=== PATIENT | male | born 1970 | race Caucasian/White ===

== ENCOUNTER → 2016-04-30 | Outpatient (CLI) | payer OTHER ==
[~2016-04-30] MED LIST: ALLOPURINOL 10100 M1 PO; ARMOUR THYROID60 M1 PO; FLEXERIL PO; HYDROCODON-ACE1 EAC7 PO; IBUPROFEN 800800 M1 PO; PAXIL10 MG PO; VITAMINC500 PO
== END ==
LOC: RAD 04-22 16:36
DX: M48.07 Spinal stenosis, lumbosacral region (principal); M47.816 Spondylosis without myelopathy or radiculopathy, lumbar region; M54.9 Dorsalgia, unspecified; M54.5 Low back pain